=== PATIENT | male | born 1955 | race Caucasian/White ===

== ENCOUNTER → 2016-09-27 | Outpatient (REF) | payer OTHER ==
[~2016-09-27] MED LIST: /WARF25TA PO; CELEBREX PO; MULTTAB4 PO; PERCOCET PO; TYLE325T5 PO; VITA500C24 PO
== END ==
LOC: M SFHCPLAZ 10:08
PROVIDERS: ATTEND Dermatology
DX: D04.61 Carcinoma in situ of skin of right upper limb, including shoulder (principal)

== ENCOUNTER → 2017-04-26 | Outpatient (REF) | payer OTHER | LOC: M SFHCLERA 12:05 | PROVIDERS: ATTEND Dermatology | DX: L57.0 Actinic keratosis (principal); L82.1 Other seborrheic keratosis ==